=== PATIENT | female | born 1970 ===

== ENCOUNTER 2018-08-21 14:53 | Outpatient (CLI) | payer OTHER ==
[~2018-08-21 14:53] MED LIST: PRILOSEC10 MG PO
== END 2018-08-21 14:55 | disposition home or self-care (01) ==
LOC: MAMO-SONO 14:53
DX: N60.11 Diffuse cystic mastopathy of right breast (principal); N60.12 Diffuse cystic mastopathy of left breast; Z12.31 Encounter for screening mammogram for malignant neoplasm of breast

== ENCOUNTER 2020-07-07 14:50 | Outpatient (CLI) | payer OTHER | END 2020-07-07 14:59 | disposition home or self-care (01) | LOC: MAMO-SONO 14:50 | PROVIDERS: ATTEND Obstetrics & Gynecology | DX: Z12.31 Encounter for screening mammogram for malignant neoplasm of breast (principal); N64.59 Other signs and symptoms in breast ==

== ENCOUNTER 2021-09-12 12:00 | Outpatient (CLI) | payer OTHER | END 2021-09-12 12:13 | disposition home or self-care (01) | LOC: MAMO-SONO 12:00 | PROVIDERS: ATTEND Obstetrics & Gynecology | DX: Z12.31 Encounter for screening mammogram for malignant neoplasm of breast (principal); N60.11 Diffuse cystic mastopathy of right breast; N60.12 Diffuse cystic mastopathy of left breast ==

== ENCOUNTER 2023-03-28 09:41 | Outpatient (CLI) | payer OTHER | END 2023-03-28 09:55 | disposition home or self-care (01) | LOC: MAMO-SONO 09:41 | PROVIDERS: ATTEND Obstetrics & Gynecology | DX: N60.11 Diffuse cystic mastopathy of right breast (principal); N60.12 Diffuse cystic mastopathy of left breast; Z12.31 Encounter for screening mammogram for malignant neoplasm of breast ==

== ENCOUNTER 2024-05-27 09:35 | Outpatient (CLI) | payer OTHER | END 2024-05-27 09:59 | disposition home or self-care (01) | LOC: MAMO-SONO 09:35 | PROVIDERS: ATTEND Obstetrics & Gynecology | DX: N60.11 Diffuse cystic mastopathy of right breast (principal); N60.12 Diffuse cystic mastopathy of left breast ==